=== PATIENT | female | born 1980 | race Caucasian/White ===

== ENCOUNTER → 2016-09-07 | Outpatient (CLI) | payer BC | LOC: RAD 14:07 | PROVIDERS: ATTEND Family Medicine | DX: S80.01XA Contusion of right knee, initial encounter (principal); X58.XXXA Exposure to other specified factors, initial encounter ==

== ENCOUNTER 2017-05-17 10:16 | Emergency (ER) | payer BC ==
[2017-05-17] MEDS ORDERED: ONDANSETRON HCL INJ/PF 4 MG/2 ML SDV IV ONE (10:48)
[2017-05-17] MEDS ORDERED: MORPHINE SULFATE 10 MG/ML INJ IV ONE (10:48)
--- NOTE | 2017-05-17 10:50 | ER Document Report ---
ED Medical Screen (RME) - General Chief Complaint: Abdominal Pain Stated Complaint: ABDOMINAL PAIN/VOMITING Time Seen by Provider: 05/17/17 10:44 Mode of Arrival: Ambulatory Information source: Patient Notes: 37-year-old female presents with complaints of abdominal pain generalized. Patient admits nausea vomiting, she has similar episode 2 weeks ago right lower quadrant that improved after 2-3 days Patient has history of tubal ligation I have greeted and performed a rapid initial assessment of this patient. A comprehensive ED assessment and evaluation of the patient, analysis of test results and completion of the medical decision making process will be conducted by additional ED providers. PHYSICAL EXAMINATION: GENERAL: Well-appearing, well-nourished and in mild distress. HEAD: Atraumatic, normocephalic. EYES: Pupils equal round extraocular movements intact, conjunctiva are normal. ENT: Nares patent NECK: Normal range of motion LUNGS: No respiratory distress Musculoskeletal: Normal range of motion NEUROLOGICAL: Normal speech, normal gait. PSYCH: Normal mood, normal affect. SKIN: Warm, Dry, normal turgor, no rashes or lesions noted. TRAVEL OUTSIDE OF THE [place] IN LAST 30 DAYS: No - Related Data Allergies/Adverse Reactions: hydrocodone [Hydrocodone] Allergy (Severe, Verified 05/17/17 10:20) N&V, itching Past Medical History - Past Medical History Cardiac Medical History: Reports: Hx Hypertension Pulmonary Medical History: Reports: Hx Pneumonia - "Walking" yrs ago Comment Only: Hx Asthma - Chronic allergies Renal/ Medical History: Denies: Hx Peritoneal Dialysis Musculoskeltal Medical History: Reports Hx Arthritis - Knees, elbows Psychiatric Medical History: Reports: Hx Attention Deficit Hyperactivity Disorder, Hx Depression - Immunizations Hx Diphtheria, Pertussis, Tetanus Vaccination: Yes Physical Exam - Vital signs Vitals: Temp Pulse Resp BP Pulse Ox 97.8 F 104 H 28 H 125/66 94 05/17/17 10:20 05/17/17 10:20 05/17/17 10:20 05/17/17 10:20 05/17/17 10:20 Course - Vital Signs Vital signs: Temp Pulse Resp BP Pulse Ox 97.8 F 104 H 28 H 125/66 94 05/17/17 10:20 05/17/17 10:20 05/17/17 10:20 05/17/17 10:20 05/17/17 10:20
--- NOTE | 2017-05-17 11:11 | ER Document Report ---
ED GI/ - General Chief Complaint: Abdominal Pain Stated Complaint: ABDOMINAL PAIN/VOMITING Time Seen by Provider: 05/17/17 10:44 Mode of Arrival: Ambulatory Notes: 37-year-old morbidly obese female with generalized acute abdominal pain that started at 0200. She went to urgent care who sent her to the emergency room. She took mag citrate which did not help. no vomiting. No fever or chills. No dysuria. TRAVEL OUTSIDE OF THE [place] IN LAST 30 DAYS: No - Related Data Allergies/Adverse Reactions: hydrocodone [Hydrocodone] Allergy (Severe, Verified 05/17/17 10:20) N&V, itching Past Medical History - General Information source: Patient - Social History Smoking Status: Never Smoker Chew tobacco use (# tins/day): No Frequency of alcohol use: None Drug Abuse: None Lives with: Family Family History: Reviewed & Not Pertinent - Past Medical History Cardiac Medical History: Reports: Hx Hypertension Pulmonary Medical History: Reports: Hx Pneumonia - "Walking" yrs ago Comment Only: Hx Asthma - Chronic allergies Renal/ Medical History: Denies: Hx Peritoneal Dialysis Musculoskeltal Medical History: Reports Hx Arthritis - Knees, elbows Psychiatric Medical History: Reports: Hx Attention Deficit Hyperactivity Disorder, Hx Depression Past Surgical History: Reports: Hx Gynecologic Surgery - ovary, Hx Tubal Ligation - Immunizations Hx Diphtheria, Pertussis, Tetanus Vaccination: Yes Hx Pneumococcal Vaccination: 12/07/12 Review of Systems - Review of Systems Constitutional: No symptoms reported EENT: No symptoms reported Cardiovascular: No symptoms reported Respiratory: No symptoms reported Gastrointestinal: See HPI Genitourinary: No symptoms reported Female Genitourinary: No symptoms reported Musculoskeletal: No symptoms reported Skin: No symptoms reported Hematologic/Lymphatic: No symptoms reported Neurological/Psychological: No symptoms reported Physical Exam - Vital signs Vitals: Temp Pulse Resp BP Pulse Ox 97.8 F 104 H 28 H 125/66 94 05/17/17 10:20 05/17/17 10:20 05/17/17 10:20 05/17/17 10:20 05/17/17 10:20 Interpretation: Normal - General General appearance: Appears well, Alert - HEENT Head: Normocephalic, Atraumatic Eyes: Normal Conjunctiva: Normal Pupils: PERRL Neck: Supple. No: Lymphadenopathy - Respiratory Respiratory status: No respiratory distress Chest status: Nontender Breath sounds: Normal Chest palpation: Normal - Cardiovascular Rhythm: Regular Heart sounds: Normal auscultation Murmur: No - Abdominal Inspection: Normal Distension: No distension. No: Distended Bowel sounds: Normal Tenderness: Tender - mild diffusely lower 1/2 abdomen bilaterally Organomegaly: No organomegaly - Back Back: Normal, Nontender. No: CVA tenderness - Extremities General upper extremity: Normal inspection, Nontender, Normal color, Normal ROM , Normal temperature General lower extremity: Normal inspection, Nontender, Normal color, Normal ROM , Normal temperature, Normal weight bearing. No: Josy's sign - Neurological Neuro grossly intact: Yes Cognition: Normal Orientation: AAOx4 Daphne Coma Scale Eye Opening: Spontaneous Daphne Coma Scale Verbal: Oriented Daphne Coma Scale Motor: Obeys Commands Daphne Coma Scale Total: 15 Speech: Normal Motor strength normal: LUE, RUE, LLE, RLE Sensory: Normal - Psychological Associated symptoms: Normal affect, Normal mood - Skin Skin Temperature: Warm Skin Moisture: Dry Skin Color: Normal Skin irregularity: negative: Rash Course - Re-evaluation Re-evalutation: 05/17/17 14:20 White count is elevated with segs 86%, 3+ bacteria in the urine without white blood cells urine culture is pending, spoke with Dr. Harvey who would order the CT scan about the result which shows constipation and a left ovarian cyst. At this time the patient is non-tender after 2 L of fluid. I will give her Rocephin for the bacteria pending the urine culture and Dr. Longo will come see the patient is recommended by Dr. carvajal 05/17/17 14:58 dr longo evaluated pt, only constipation - Vital Signs Vital signs: Temp Pulse Resp BP Pulse Ox 97.8 F 104 H 28 H 125/66 94 05/17/17 10:20 05/17/17 10:20 05/17/17 10:20 05/17/17 10:20 05/17/17 10:20 - Laboratory Result Diagrams: 05/17/17 11:20 05/17/17 11:20 Laboratory results interpreted by me: 05/17/17 05/17/17 11:20 11:20 WBC 17.7 H RBC 3.61 L Hgb 11.1 L Hct 32.1 L RDW 14.8 H Seg Neutrophils % 83.2 H Lymphocytes % 8.9 L Absolute Neutrophils 14.7 H Sodium 132.2 L Chloride 92 L BUN 36 H Creatinine 2.06 H Est GFR ( Amer) 32 L Est GFR (Non-Af Amer) 27 L Glucose 168 H AST 96 H ALT 65 H Discharge - Discharge Clinical Impression: Left ovarian cyst Constipation Qualifiers: Constipation type: other constipation type Qualified Code(s): K59.09 - Other constipation Condition: Good Disposition: HOME, SELF-CARE Instructions: Abdominal Pain ([facility]), Constipation ([facility]), Ovarian Cyst ([facility]) Additional Instructions: plenty of fluids do not take mag citrate it causes cramping take capful of miralax daioly instead ovarian cyst can be followed by dr. walter to er if worse Please complete the patient satisfaction survey if you get one, and return it.. If you do not receive a survey, then you can go to the [facility] website, [email or web address] and place your comments about your very good care. Thank you very much. It was a pleasure being your medical provider today. Referrals: ALEX WALTER, [Primary Care Provider] - Follow up tomorrow
[2017-05-17] MEDS ORDERED: NORMAL SALINE 1000 ML 2,000 ML IV ONE (11:21)
[2017-05-17 11:39] LABS: ABSOLUTE LYMPHOCYTES (AUTO) 1.6 10^3/uL (0.5-4.7); ABSOLUTE MONOCYTES (AUTO) 1.4 10^3/uL (0.1-1.4); ABSOLUTE NEUT (AUTO) 14.7 10^3/uL (1.7-8.2); BASOPHILS % (AUTO) 0.3 % (0-2); HEMATOCRIT 32.1 % (36.0-47.0); HEMOGLOBIN 11.1 g/dL (12.0-15.5); HGB HCT DIFFERENCE 1.2; LYMPHOCYTES % (AUTO) 8.9 % (13-45); MEAN CORPUSCULAR HEMOGLOBIN 30.8 pg (27.0-33.4); MEAN CORPUSCULAR HGB CONC 34.7 g/dL (32.0-36.0); MEAN CORPUSCULAR VOLUME 89 fl (80-97); MONOCYTES % (AUTO) 7.6 % (3-13); RED BLOOD COUNT 3.61 10^6/uL (3.72-5.28); RED CELL DISTRIBUTION WIDTH 14.8 % (11.5-14.0); SEGMENTED NEUTROPHILS % (AUTO) 83.2 % (42-78); WHITE BLOOD COUNT 17.7 10^3/uL (4.0-10.5)
[2017-05-17 12:01] LABS: ALANINE AMINOTRANSFERASE 65 U/L (9-52); ALBUMIN 4.6 g/dL (3.5-5.0); ALKALINE PHOSPHATASE 91 U/L (38-126); ANION GAP 16 (5-19); ASPARTATE AMINO TRANSFERASE 96 U/L (14-36); BILIRUBIN,DIRECT 0.4 mg/dL (0.0-0.4); BILIRUBIN,TOTAL 0.4 mg/dL (0.2-1.3); BLOOD UREA NITROGEN 36 mg/dL (7-20); CALCIUM 9.3 mg/dL (8.4-10.2); CARBON DIOXIDE 24 mmol/L (22-30); CHLORIDE 92 mmol/L (98-107); CREATININE RESULT 2.06 mg/dL (0.52-1.25); GLUCOSE 168 mg/dL (75-110); LIPASE 108.2 U/L (23-300); POTASSIUM 3.7 mmol/L (3.6-5.0); SODIUM 132.2 mmol/L (137-145); TOTAL PROTEIN 7.8 g/dL (6.3-8.2)
[2017-05-17 13:51] LABS: APPEARANCE,URINE SLIGHTLY-CLOUDY; BILIRUBIN,URINE NEGATIVE (NEGATIVE); GLUCOSE, URINE NEGATIVE (NEGATIVE); KETONES,URINE NEGATIVE (NEGATIVE); LEUKOCYTE ESTERASE,URINE NEGATIVE (NEGATIVE); NITRITE,URINE NEGATIVE (NEGATIVE); PROTEIN,URINE NEGATIVE (NEGATIVE); URINE SPECIFIC GRAVITY 1.014; UROBILINOGEN,URINE NEGATIVE mg/dL (<2.0)
--- NOTE | 2017-05-17 14:01 | RADIOLOGY REPORT (SQ) ---
EXAM DESCRIPTION: CT ABD/PELVIS ORAL ONLY COMPLETED DATE/TIME: 05/17/2017 1:37 pm REASON FOR STUDY: abd pain possible ruptured appendix COMPARISON: 01/21/2012 TECHNIQUE: CT scan of the abdomen and pelvis performed without intravenous or oral contrast. Images reviewed with lung, soft tissue, and bone windows. Reconstructed coronal and sagittal MPR images revi ewed. All images stored on PACS. All CT scanners at this facility use dose modulation, iterative reconstruction, and/or weight based d osing when appropriate to reduce radiation dose to as low as reasonably achievable (ALARA). [facility]: Dose Right [facility]: CareDose [facility]: Dose Right [facility]: Teradose 4D [facility]: Smart Fan[employer] Limited RADIATION DOSE: Up-to-date CT equipment and radiation dose reduction techniques were employed. CTDIv ol: 29.0 mGy. DLP: 1710 mGy-cm.mGy. LIMITATIONS: None. FINDINGS: LOWER CHEST: No significant findings. No nodules or infiltrates. NON-CONTRASTED LIVER, SPLEEN, ADRENALS: Evaluation limited by lack of IV contrast. No identified sign ificant masses. PANCREAS: No masses. No peripancreatic inflammatory changes. GALLBLADDER: No identified stones by CT criteria. No inflammatory changes to suggest cholecystitis. RIGHT KIDNEY AND URETER: No suspicious masses. Assessment limited by lack of IV contrast. No signif icant calcifications. No hydronephrosis or hydroureter. LEFT KIDNEY AND URETER: No suspicious masses. Assessment limited by lack of IV contrast. No signifi cant calcifications. No hydronephrosis or hydroureter. AORTA AND RETROPERITONEUM: No aneurysm. No retroperitoneal masses or adenopathy. BOWEL AND PERITONEAL CAVITY: Increased fecal material with fluid fills the right and transverse colon . APPENDIX: Normal. PELVIS, BLADDER, AND ABDOMINAL WALL:Previously noted right ovarian mass no longer seen. A 2.6 cm cys t is seen of the left ovary. BONES: No significant findings. OTHER: No other significant finding. IMPRESSION: No CT evidence appendicitis. Constipation with increased fecal material and fluid filling the right and transverse colon. 2.6 cm left ovarian cyst. COMMENT: Quality ID # [id number]: Final reports with documentation of one or more dose reduction techniques (e.g., Automated exposure control, adjustment of the mA and/or kV according to patient size, use of iterative reconstruction technique) TECHNICAL DOCUMENTATION: JOB ID: [id number]- All Rights Reserved
[2017-05-17] MEDS ORDERED: CEFTRIAXONE 1 GM/D5W RTU 1 GM/50 ML RTUPB IV ONE (14:19)
--- NOTE | 2017-05-17 15:08 | PDOC CONSULTATION ---
Consultation Consult Date: 05/17/17 Attending physician:: DOUG ROUSE Consult reason:: Abdominal pain nausea vomiting History of Present Illness Admission Date/PCP: ALEX WALTER DO History of Present Illness: EKTA CARROLL is a 37 year old female sent to the emergency department approximately 2 day history of abdominal pain, nausea and vomiting. Patient states she has not had a good bowel movement in over a week. She denies history of trauma, previous episodes of abdominal pain or constipation. She has never had a colonoscopy. She did take milk of magnesia with minimal results. She is now seen in the emergency department where she was found to have nonlocalized abdominal pain. She underwent CT scan of the abdomen and pelvis which showed constipation only. Surgery was consulted. Past Medical History Cardiac Medical History: Reports: Hypertension Pulmonary Medical History: Reports: Pneumonia - "Walking" yrs ago Comment Only: Asthma - Chronic allergies Musculoskeltal Medical History: Reports: Arthritis - Knees, elbows Psychiatric Medical History: Reports: Attention Deficit Hyperactivity Disorder, Depression Hematology: Denies: Anemia Past Surgical History Past Surgical History: Reports: Tubal Ligation, Other - Abdominal plasty with panniculectomy, [facility] Social History Smoking Status: Never Smoker Frequency of Alcohol Use: None Hx Recreational Drug Use: No Drugs: None Hx Prescription Drug Abuse: No Family History Family History: Reviewed & Not Pertinent Parental Family History Reviewed: Yes Children Family History Reviewed: Yes Sibling(s) Family History Reviewed.: Yes Medication/Allergy Home Medications: Alprazolam [Xanax] 2 mg PO BID 10/22/15 Dextroamphetamine/Amphetamine [Adderall 10 mg Tablet] 10 mg PO QAM 10/22/15 Furosemide [Lasix 20 mg Tablet] 20 mg PO QAM 10/22/15 Montelukast Sodium [Singulair 10 mg Tablet] 10 mg PO QAM 10/22/15 Oxycodone HCl/Acetaminophen [Percocet 7.5-325 Mg Tablet] 1 each PO QHS 10/22/15 Prazosin HCl 1 mg PO QHS 10/22/15 Pregabalin [Lyrica] 150 mg PO BID 10/22/15 Telmisartan/Hydrochlorothiazid [Micardis HCT 40-12.5 mg Tablet] 1 each PO DAILY 10/22/15 Venlafaxine HCl [Effexor Xr] 150 mg PO BID 10/22/15 Allergies/Adverse Reactions: hydrocodone [Hydrocodone] Allergy (Severe, Verified 05/17/17 10:20) N&V, itching Review of Systems Eyes: ABSENT: visual disturbances Ears: ABSENT: hearing changes Cardiovascular: ABSENT: chest pain, dyspnea on exertion, edema, orthropnea, palpitations Respiratory: ABSENT: cough, hemoptysis Gastrointestinal: PRESENT: as per HPI. ABSENT: abdominal pain, constipation, diarrhea, hematemesis, hematochezia, nausea, vomiting Psychiatric: PRESENT: as per HPI Physical Exam Vital Signs: Temp Pulse Resp BP Pulse Ox 97.8 F 104 H 28 H 125/66 94 05/17/17 10:20 05/17/17 10:20 05/17/17 10:20 05/17/17 10:20 05/17/17 10:20 Intake & Output 05/16/17 05/17/17 05/18/17 06:59 06:59 06:59 Weight 127.1 kg General appearance: PRESENT: mild distress Head exam: PRESENT: normocephalic Eye exam: PRESENT: EOMI Ear exam: PRESENT: TM's normal bilaterally Neck exam: PRESENT: full ROM Respiratory exam: PRESENT: retraction Cardiovascular exam: PRESENT: RRR Pulses: PRESENT: +1 pedal pulses bilateral, +2 pedal pulses bilateral GI/Abdominal exam: PRESENT: other - Generalized distention doughy,semi-firm no peritoneal signs no rigidity. Rectal exam: PRESENT: deferred Extremities exam: PRESENT: full ROM Neurological exam: PRESENT: oriented to time, oriented to situation, reflexes normal Psychiatric exam: PRESENT: anxious Results Laboratory Results: 05/17/17 11:20 05/17/17 11:20 05/17/17 05/17/17 05/17/17 11:20 11:20 11:20 WBC 17.7 H RBC 3.61 L Hgb 11.1 L Hct 32.1 L MCV 89 MCH 30.8 MCHC 34.7 RDW 14.8 H Plt Count 343 Seg Neutrophils % 83.2 H Lymphocytes % 8.9 L Monocytes % 7.6 Eosinophils % 0.0 Basophils % 0.3 Absolute Neutrophils 14.7 H Absolute Lymphocytes 1.6 Absolute Monocytes 1.4 Absolute Eosinophils 0.0 Absolute Basophils 0.0 Sodium 132.2 L Potassium 3.7 Chloride 92 L Carbon Dioxide 24 Anion Gap 16 BUN 36 H Creatinine 2.06 H Est GFR ( Amer) 32 L Est GFR (Non-Af Amer) 27 L Glucose 168 H Calcium 9.3 Total Bilirubin 0.4 AST 96 H ALT 65 H Alkaline Phosphatase 91 Total Protein 7.8 Albumin 4.6 Lipase 108.2 Serum HCG, Qual NEGATIVE Urine Color Urine Appearance Urine pH Ur Specific Jonancy Urine Protein Urine Glucose (UA) Urine Ketones Urine Blood Urine Nitrite Ur Leukocyte Esterase Urine WBC (Auto) Urine RBC (Auto) 05/17/17 12:25 WBC RBC Hgb Hct MCV MCH MCHC RDW Plt Count Seg Neutrophils % Lymphocytes % Monocytes % Eosinophils % Basophils % Absolute Neutrophils Absolute Lymphocytes Absolute Monocytes Absolute Eosinophils Absolute Basophils Sodium Potassium Chloride Carbon Dioxide Anion Gap BUN Creatinine Est GFR ( Amer) Est GFR (Non-Af Amer) Glucose Calcium Total Bilirubin AST ALT Alkaline Phosphatase Total Protein Albumin Lipase Serum HCG, Qual Urine Color YELLOW Urine Appearance SLIGHTLY-CLOUDY Urine pH 5.0 Ur Specific Jonancy 1.014 Urine Protein NEGATIVE Urine Glucose (UA) NEGATIVE Urine Ketones NEGATIVE Urine Blood NEGATIVE Urine Nitrite NEGATIVE Ur Leukocyte Esterase NEGATIVE Urine WBC (Auto) 1 Urine RBC (Auto) 3 Impressions: Abdomen/Pelvis CT 05/17/17 12:33 IMPRESSION: No CT evidence appendicitis. Constipation with increased fecal material and fluid filling the right and transverse colon. 2.6 cm left ovarian cyst. Assessment & Plan - Diagnosis (1) Constipation Qualifiers: Constipation type: other constipation type Qualified Code(s): K59.09 - Other constipation Is this a current diagnosis for this admission?: Yes Plan: I have examined the patient review the medical record, reviewed his CT scan of the abdomen and pelvis which was obtained with oral contrast; IV contrast spared due to patient's chronic renal insufficiency. My impression is that her principal problem is constipation; low suspicions for intra-abdominal surgical pathology. Recommendations 1. Hydration 2. Cathartics; would suggest enema today 3. Follow-up with surgical consultation on an as needed basis - Time Time Spent: 30 to 50 Minutes Critical Time spent with patient: Less than 15 minutes Anticipated discharge: Home
[2017-05-17 15:30] VITALS: BP 118/86
== END 2017-05-17 15:30 | disposition home or self-care (01) ==
LOC: ER 10:16
DX: N83.202 Unspecified ovarian cyst, left side (principal); K59.09 Other constipation; R11.10 Vomiting, unspecified; R10.84 Generalized abdominal pain
CPT/HCPCS: 36415; 87086; 83690; 84703; 85025; 80053; 81001; 74176; J2270; J2405; J7030; J0696

== ENCOUNTER 2017-06-09 14:31 | Inpatient (IN) | payer BC ==
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
[2017-06-09] MEDS ORDERED: NORMAL SALINE 1000 ML 1,000 ML IV ONE ×3 (15:54→18:37)
--- NOTE | 2017-06-09 15:55 | RADIOLOGY REPORT (SQ) ---
EXAM DESCRIPTION: ANKLE LEFT COMPLETE COMPLETED DATE/TIME: 06/09/2017 3:46 pm REASON FOR STUDY: fall/pain COMPARISON: None. NUMBER OF VIEWS: Three views. TECHNIQUE: AP, lateral, and oblique radiographic images acquired of the left ankle. LIMITATIONS: None. FINDINGS: MINERALIZATION: Normal. BONES: There is an oblique fracture of the distal fibula. The ankle mortise is maintained. JOINTS: No effusions. SOFT TISSUES: No soft tissue swelling. No foreign body. OTHER: No other significant finding. IMPRESSION: Fracture of the distal fibula. TECHNICAL DOCUMENTATION: JOB ID: [id number] [employer]- All Rights Reserved
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
--- NOTE | 2017-06-09 16:53 | RADIOLOGY REPORT (SQ) ---
EXAM DESCRIPTION: CT HEAD WITHOUT COMPLETED DATE/TIME: 06/09/2017 4:45 pm REASON FOR STUDY: Recent injury to the face from a fall. Overdosed COMPARISON: 10/21/2015 TECHNIQUE: Axial images acquired through the brain without intravenous contrast. Images reviewed wi th bone, brain and subdural windows. Images stored on PACS. All CT scanners at this facility use dose modulation, iterative reconstruction, and/or weight based d osing when appropriate to reduce radiation dose to as low as reasonably achievable (ALARA). [facility]: Dose Right [facility]: CareDose [facility]: Dose Right [facility]: Teradose 4D [facility]: Big Live RADIATION DOSE: mGy. LIMITATIONS: None. FINDINGS: VENTRICLES: Normal size and contour. CEREBRUM: No masses. No hemorrhage. No midline shift. No evidence for acute infarction. Normal gra y/white matter differentiation. No areas of low density in the white matter. CEREBELLUM: No masses. No hemorrhage. No alteration of density. No evidence for acute infarction. EXTRAAXIAL SPACES: No fluid collections. No masses. ORBITS AND GLOBE: No intra- or extraconal masses. Normal contour of globe without masses. CALVARIUM: No fracture. PARANASAL SINUSES: No fluid or mucosal thickening. SOFT TISSUES: No mass or hematoma. OTHER: No other significant finding. IMPRESSION: NORMAL BRAIN CT WITHOUT CONTRAST. EVIDENCE OF ACUTE STROKE: NO. COMMENT: Quality ID # [id number]: Final reports with documentation of one or more dose reduction techniques (e.g., Automated exposure control, adjustment of the mA and/or kV according to patient size, use of iterative reconstruction technique) TECHNICAL DOCUMENTATION: JOB ID: [id number]- All Rights Reserved
[2017-06-09 17:01] LABS: HEMATOCRIT 27.7 % (36.0-47.0); HEMOGLOBIN 9.6 g/dL (12.0-15.5); HGB HCT DIFFERENCE 1.1; MEAN CORPUSCULAR HEMOGLOBIN 30.2 pg (27.0-33.4); MEAN CORPUSCULAR HGB CONC 34.4 g/dL (32.0-36.0); MEAN CORPUSCULAR VOLUME 88 fl (80-97); RED BLOOD COUNT 3.17 10^6/uL (3.72-5.28)
[2017-06-09 17:14] LABS: ALANINE AMINOTRANSFERASE 149 U/L (9-52); ALBUMIN 3.9 g/dL (3.5-5.0); ALKALINE PHOSPHATASE 100 U/L (38-126); ANION GAP 18 (5-19); ASPARTATE AMINO TRANSFERASE 115 U/L (14-36); BILIRUBIN,DIRECT 0.8 mg/dL (0.0-0.4); BILIRUBIN,TOTAL 0.8 mg/dL (0.2-1.3); BLOOD UREA NITROGEN 42 mg/dL (7-20); CALCIUM 8.9 mg/dL (8.4-10.2); CARBON DIOXIDE 26 mmol/L (22-30); CHLORIDE 96 mmol/L (98-107); CREATININE RESULT 2.68 mg/dL (0.52-1.25); GLUCOSE 107 mg/dL (75-110); POTASSIUM 3.8 mmol/L (3.6-5.0); SODIUM 139.5 mmol/L (137-145); TOTAL PROTEIN 7.1 g/dL (6.3-8.2)
[2017-06-09 17:31] LABS: ALCOHOL < 10 mg/dL (NONE DETECTED)
[2017-06-09 17:33] LABS: BAND NEUTROPHILS % (MANUAL) 2 % (3-5); BASOPHILS % (MANUAL) 0 % (0-2); EOSINOPHILS % (MANUAL) 7 % (0-6); LYMPHOCYTES % (MANUAL) 20 % (13-45); TOTAL CELLS COUNTED 100
[2017-06-09 17:35] LABS: ANISOCYTOSIS SLIGHT; POIKILOCYTOSIS SLIGHT; TOXIC GRANULATION SLIGHT
[2017-06-09] MEDS ORDERED: NICOTINE 21 MG/24 HR PATCH.TD24 TD ONE ×2 (18:36→23:15)
[2017-06-09 18:42] LABS: ADD ON TESTING BLD IN LAB ACKNOWLEDGE
[2017-06-09 19:00] LABS: APPEARANCE,URINE SLIGHTLY-CLOUDY; BILIRUBIN,URINE NEGATIVE (NEGATIVE); GLUCOSE, URINE NEGATIVE (NEGATIVE); KETONES,URINE NEGATIVE (NEGATIVE); LEUKOCYTE ESTERASE,URINE NEGATIVE (NEGATIVE); NITRITE,URINE NEGATIVE (NEGATIVE); PROTEIN,URINE 30 mg/dL (NEGATIVE); URINE SPECIFIC GRAVITY 1.012; UROBILINOGEN,URINE NEGATIVE mg/dL (<2.0)
[2017-06-09 19:21] LABS: URINE BARBITURATES SCREEN NEGATIVE; URINE METHADONE SCREEN NEGATIVE; URINE OPIATES LOW NEGATIVE; URINE PHENCYCLIDINE SCREEN NEGATIVE
[2017-06-09 19:28] LABS: CREATINE KINASE 4381 U/L (30-135)
[2017-06-09 21:23] LABS: ADD ON TESTING BLD IN LAB ACKNOWLEDGE
[2017-06-09 21:39] LABS: MAGNESIUM 2.1 mg/dL (1.6-2.3)
--- NOTE | 2017-06-09 21:51 | PDOC H&P ---
History of Present Illness Admission Date/PCP: 06/09/17 20:19 ALEX WALTER, DO Psych Dr. Wise, [facility] Patient complains of: FALL W/LT. ANKLE PAIN History of Present Illness: EKTA CARROLL is a 37 year old morbidly obese female, with underlying ADHD, anxiety and depression, history of cutting herself, obstructive sleep apnea, hyperlipidemia, chronic bronchitis, hypertension, and mild occasional reflux who presents to the emergency room for evaluation of above complaint. Reported chronic opiate and benzodiazepine use. Patient has been discussed with emergency room physician who evaluated the patient. Fell off a stool last or Wednesday while at work. Was seen at the [facility] emergency room, and sent home with a take home Percocet pack and Flexeril 10 mg every 8 hours as needed, per ER physician report of paperwork from [facility]. Took pain medication and Flexeril earlier today and fell down a flight of 2 or 3 stairs at her home. No loss of consciousness. Complaining of left ankle pain , with x-rays revealing a distal left fibular fracture. Splint has been applied by emergency room physician. No nausea vomiting, diarrhea or dysuria, fever or chills, chest or abdominal pain. Emergency room physician felt patient was clearly altered in her mental status and thinking earlier, and felt she was a danger to herself and thus andrews up IVC papers. Has been seen by Dr. Daniels of psychiatry, who will also see her in follow-up. Patient states she took prescriptions that she has including Xanax, Percocet, Ambien, Wellbutrin, Flexeril, Motrin, and Naprosyn. States these are all her own prescriptions. When asked if she had taken the prescriptions in the correct amounts, she stated "as best as I can remember." Denied taking any other substances. Denies suicidal or homicidal ideation. Brief mild hypotension earlier. Dictation via voice recognition software. Laboratory results are listed in [employer] and are reviewed. X-ray summary results are listed below, with full report(s) reviewed. EKG reviewed. Social history/personal habits: . Has children. 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 Allergies/adverse reactions are listed in [employer] and are reviewed. No problems with Percocet; uncertain if she can tolerate morphine or Dilaudid. Home medications initially autopopulated into Smart[employer] may not accurately reflect patient's true medications, dosages, and/or frequencies. technical support assistant to reconcile medications. Unfortunately, patient not certain of all medications/dosages/frequencies. REVIEW OF SYSTEMS: Constitutional: No fever or chills. Eyes: No vision complaints. ENT: No swallowing problems or complaints. Denies hearing loss. Pulmonary: No current complaints. Cardiovascular: No current complaints, including chest pain. Gastrointestinal: No current complaints, including nausea or vomiting. Skin: No current complaints, including rashes. Hematologic: Denies easy bruising. Neurologic: No current complaints, including numbness or tingling. Musculoskeletal: See history and present illness. Psychiatric: See history and present illness. Endocrine: No current complaints, including polyuria. Genitourinary: No current complaints, including dysuria. PHYSICAL EXAMINATION: 5 feet 9 inches tall. 129.3 kg. BMI 42.1 kg/m. Blood pressure 121/68. Pulse 97 and regular. 97% saturation on room air. Temperature 98.7. Respirations are 22 and unlabored. Female emergency room assistant in nursing Ana Cristina is present. Morbidly obese otherwise well-developed young female appearing a bit younger than her stated age. Pleasant awake alert and cooperative. Appears perhaps slightly altered in her mental status. Occasionally slightly tearful. Skin is warm and dry. No grossly obvious evidence of rash in areas of skin examined. No subcutaneous nodules palpated. ENT: Hearing grossly normal to normal conversation. Tongue midline on protrusion pink and slightly tacky. No carnes sign. Has a small abrasion on the bridge of her nose, which appears to have been present for at least several days. No evidence of secondary infection of same. Eyes: No scleral icterus. Pupils equal and reactive to light at 4 mm. [place] conjunctivae. No raccoon eyes. Neck is supple and nontender to gentle active range of motion and palpation. Midline trachea. No palpable thyroid nodule mass enlargement or tenderness. Lymphatic: No palpable cervical or clavicular nodes. Neck and lymphatic exams limited by patient body habitus. Psychiatric: Fair to reasonable insight into acute and chronic medical issues. Oriented to time location and why here. Lungs: Auscultation reveals clear and equal breath sounds bilaterally. No use of accessory respiratory muscles. Cardiovascular: Heart regular rate and rhythm, without gallop murmur or rub. No carotid or abdominal aortic bruits. No right ankle or pedal edema. Faintly palpable right dorsalis pedis pulse. Examination of left lower extremity limited due to splint and chris wrap extending from just below knee through distal foot. Left great toe visible, warm, with excellent capillary refill. Abdomen:soft obese nontender with positive bowel sounds. Unable to adequately evaluate abdomen for masses or organomegaly due to body habitus. Extremities: Right foot and left great toe are warm and dry. No calf tenderness to compression. No grossly obvious visual evidence of right calf swelling. Gentle manipulation of lower extremities fails to reveal any obvious evidence of injury or instability to knees hips or right ankle. Neurologic: Moves upper extremities grossly normally. Patellar reflexes absent. Absent right Babinski. Light touch is intact at right foot. Dorsiflexion and plantarflexion of right foot 5/5. Past Medical History Cardiac Medical History: Reports: Hyperlipidema, Hypertension Denies: Atrial Fibrillation, Congestive Heart Failure, Coronary Artery Disease, DVT, Myocardial Infarction, Pulmonary Embolism Pulmonary Medical History: Reports: Pneumonia - "Walking" yrs ago, Sleep Apnea Comment Only: Asthma - Chronic allergies Neurological Medical History: Denies: Hemorrhagic CVA, Ischemic CVA, Seizures Endocrine Medical History: Denies: Diabetes Mellitus Type 1, Diabetes Mellitus Type 2, Hyperthyroidism, Hypothyroidism GI Medical History: Reports: Gastroesophageal Reflux Disease Denies: Cirrhosis, Hepatitis, Peptic Ulcer Disease Musculoskeltal Medical History: Reports: Arthritis - Knees, elbows Psychiatric Medical History: Reports: Attention Deficit Hyperactivity Disorder, Depression Hematology: Denies: Anemia Infectious Medical History: Denies: Hepatitis B, Hepatitis C Past Surgical History Past Surgical History: Reports: Tubal Ligation, Other - Abdominal plasty with panniculectomy, [facility], 2013. Denies: Coronary Artery Bypass Graft Social History Information Source: Patient, Emergency Med Personnel, [facility] Records Lives with: Spouse/Significant other - Has lived with ex- for past 9 years Smoking Status: Current Every Day Smoker - Electronic cigarette Frequency of Alcohol Use: None Hx Recreational Drug Use: No Drugs: None Hx Prescription Drug Abuse: Yes - Suspected - Advance Directive Resuscitation Status: Full Code Surrogate healthcare decision maker:: Ex- Family History Family History: Reviewed & Not Pertinent Parental Family History Reviewed: Yes - Uncertain; patient is adopted Children Family History Reviewed: Yes - ADHD Sibling(s) Family History Reviewed.: Yes - Uncertain; patient is adopted Medication/Allergy Home Medications: Alprazolam [Xanax] 2 mg PO Q12 06/09/17 Asenapine Maleate [Saphris] 10 mg SL QHS 06/09/17 Bupropion HCl [Bupropion Xl] 150 mg PO QAM 06/09/17 Cetirizine HCl [Zyrtec 10 mg Tablet] 10 mg PO DAILY 06/09/17 Cyclobenzaprine HCl [Flexeril 10 mg Tablet] 10 mg PO Q8HP PRN 06/09/17 Dextroamphetamine/Amphetamine [Adderall Xr 20 mg Capsule] 20 mg PO DAILY Furosemide [Lasix 20 mg Tablet] 20 mg PO DAILY 06/09/17 Montelukast Sodium [Singulair 10 mg Tablet] 10 mg PO QPM 06/09/17 Oxycodone HCl 15 mg PO Q6 06/09/17 Oxycodone HCl/Acetaminophen [Percocet 10-325 mg Tablet] 1 tab PO Q6HP PRN Prazosin HCl [Minipress] 5 mg PO QHS 06/09/17 Telmisartan/Hydrochlorothiazid [Telmisartan-Hctz 40-12.5 mg Tb] 1 tab PO DAILY 06/09/17 Venlafaxine HCl [Venlafaxine HCl ER] 150 mg PO BIDBS 06/09/17 Zolpidem Tartrate [Ambien] 10 mg PO HSP PRN 06/09/17 Allergies/Adverse Reactions: hydrocodone [Hydrocodone] Allergy (Severe, Verified 06/09/17 14:51) N&V, itching Physical Exam Vital Signs: Temp Pulse Resp BP Pulse Ox 98.6 F 101 H 21 H 124/79 96 06/09/17 14:47 06/09/17 16:04 06/09/17 21:27 06/09/17 21:27 06/09/17 21:27 Results Impressions: Ankle X-Ray 06/09/17 15:16 IMPRESSION: Fracture of the distal fibula. Head CT 06/09/17 16:20 IMPRESSION: NORMAL BRAIN CT WITHOUT CONTRAST. EVIDENCE OF ACUTE STROKE: NO. Assessment & Plan - Diagnosis (1) Acute encephalopathy Is this a current diagnosis for this admission?: Yes Plan: Likely secondary to multiple prescription medication she has taken. Should resolve with time and supportive care. (2) Acute worsening of stage 4 chronic kidney disease Is this a current diagnosis for this admission?: Yes Plan: IV fluids. Serial chemistry. (3) Closed fracture of left distal fibula Qualifiers: Encounter type: initial encounter Fracture morphology: other fracture Qualified Code(s): S82.832A - Other fracture of upper and lower end of left fibula, initial encounter for closed fracture Is this a current diagnosis for this admission?: Yes Plan: Splint with Chris wrap to be left in place. Orthopedic consult. Physical therapy consult. (4) Overdose Qualifiers: Encounter type: initial encounter Injury intent: undetermined intent Qualified Code(s): T50.904A - Poisoning by unspecified drugs, medicaments and biological substances, undetermined, initial encounter Is this a current diagnosis for this admission?: Yes Plan: ICU admission, since not completely sure all medications or substances patient may have taken. I have strongly encouraged patient not to get out of bed without notifying staff , to avoid another fall with injury. Knee high SCDs for DVT prophylaxis, along with subcutaneous heparin. Impression and plans were discussed with patient, who concurs. Time spent in evaluation and management of patient: 72 minutes. (5) Rhabdomyolysis Qualifiers: Rhabdomyolysis type: traumatic Encounter type: initial encounter Qualified Code(s): T79.6XXA - Traumatic ischemia of muscle, initial encounter Is this a current diagnosis for this admission?: Yes Plan: IV fluids. Serial CPK. (6) Depression Qualifiers: Depression Type: unspecified Qualified Code(s): F32.9 - Major depressive disorder, single episode, unspecified Is this a current diagnosis for this admission?: Yes Plan: Resume home medications as appropriate once these have been determined and reviewed. (7) ADHD (attention deficit hyperactivity disorder) Qualifiers: Attention deficit-hyperactivity disorder type: unspecified Qualified Code(s ): F90.9 - Attention-deficit hyperactivity disorder, unspecified type Is this a current diagnosis for this admission?: Yes Plan: Resume home medications as appropriate once these have been determined and reviewed. (8) Anemia Qualifiers: Anemia type: unspecified type Qualified Code(s): D64.9 - Anemia, unspecified Is this a current diagnosis for this admission?: Yes Plan: Follow-up CBC with differential. No need for transfusion at present time. (9) Elevated LFTs Is this a current diagnosis for this admission?: Yes Plan: Serial chemistry. (10) AMANDA (obstructive sleep apnea) Is this a current diagnosis for this admission?: Yes Plan: CPAP nightly - Time Time Spent: 50 to 70 Minutes Medications reviewed and adjusted accordingly: No - Patient uncertain medications. Anticipated discharge: Home Within: within 72 hours - Inpatient Certification Based on my medical assessment, after consideration of the patient's comorbidities, presenting symptoms, or acuity I expect that the services needed warrant INPATIENT care.: Yes I certify that my determination is in accordance with my understanding of Medicare's requirements for reasonable and necessary INPATIENT services [42 CFR 412.3e].: Yes Medical Necessity: Need Close Monitoring Due to Risk of Patient Decompensation, Need For IV Fluids, Need For Continuous Telemetry Monitoring, Risk of Diagnosis Which Will Require Inpatient Eval/Care/Monitoring Post Hospital Care: D/C or Transfer Summary
[2017-06-09] MEDS: HEPARIN SOD (PORCINE) 5,000 UNIT/ML 1 ML SYRINGE SUBCUT SCH (23:22)
[2017-06-09 23:28] LABS: VENOUS BLOOD BASE EXCESS 2.3 mmol/L; VENOUS BLOOD PCO2 49.2 mmHg (35-63); VENOUS BLOOD PH 7.37 (7.30-7.42)
[2017-06-09 23:41] LABS: PROTHROMBIN TIME 15.7 SEC (11.4-15.4)
[2017-06-09 23:42] LABS: PARTIAL THROMBOPLASTIN TIME 33.9 SEC (23.5-35.8)
[2017-06-10] MEDS: NORMAL SALINE 1000 ML 1,000 ML IV PRN ×4 (01:04→17:10)
[2017-06-10 03:45] LABS: ADD ON TESTING BLD IN LAB ACKNOWLEDGE
[2017-06-10 04:08] LABS: CREATINE KINASE 2153 U/L (30-135)
[2017-06-10 06:44] LABS: HEMATOCRIT 23.6 % (36.0-47.0); HEMOGLOBIN 8.4 g/dL (12.0-15.5); HGB HCT DIFFERENCE 1.6; MEAN CORPUSCULAR HGB CONC 35.6 g/dL (32.0-36.0); MEAN CORPUSCULAR VOLUME 87 fl (80-97); RED BLOOD COUNT 2.71 10^6/uL (3.72-5.28); RED CELL DISTRIBUTION WIDTH 14.9 % (11.5-14.0); WHITE BLOOD COUNT 10.5 10^3/uL (4.0-10.5)
[2017-06-10 06:50] LABS: ALANINE AMINOTRANSFERASE 117 U/L (9-52); ALBUMIN 3.4 g/dL (3.5-5.0); ALKALINE PHOSPHATASE 85 U/L (38-126); ANION GAP 12 (5-19); ASPARTATE AMINO TRANSFERASE 74 U/L (14-36); BILIRUBIN,DIRECT 0.6 mg/dL (0.0-0.4); BILIRUBIN,TOTAL 0.6 mg/dL (0.2-1.3); BLOOD UREA NITROGEN 31 mg/dL (7-20); CALCIUM 8.1 mg/dL (8.4-10.2); CARBON DIOXIDE 24 mmol/L (22-30); CHLORIDE 105 mmol/L (98-107); CREATININE RESULT 1.44 mg/dL (0.52-1.25); GLUCOSE 106 mg/dL (75-110); POTASSIUM 4.1 mmol/L (3.6-5.0); SODIUM 140.5 mmol/L (137-145); TOTAL PROTEIN 6.2 g/dL (6.3-8.2)
[2017-06-10 06:58] LABS: BASOPHILS % (MANUAL) 1 % (0-2); EOSINOPHILS % (MANUAL) 7 % (0-6); LYMPHOCYTES % (MANUAL) 28 % (13-45); TOTAL CELLS COUNTED 100
[2017-06-10 06:59] LABS: ANISOCYTOSIS 1+; POLYCHROMASIA 1+; TOXIC GRANULATION 1+; TOXIC VACUOLATION PRESENT
--- NOTE | 2017-06-10 08:39 | PDOC PROGRESS REPORT ---
Subjective Progress Note for:: 06/10/17 Subjective:: Patient has complained of pain on the left foot and leg and reports that the medications are not working and so she keep them dry and trying which one will work faster. Patient denies dizziness or lightheadedness. Patient reports he was not paying attention to the steps which is the reason for her fall. No nausea or vomiting. Had bowel movement that is good earlier this morning. No shortness of breath, chills or fever, dysuria urgency or frequency. Physical Exam Vital Signs: Temp Pulse Resp BP Pulse Ox 98.1 F 93 16 137/64 H 100 06/10/17 08:00 06/10/17 08:27 06/10/17 08:00 06/10/17 08:00 06/10/17 08:00 Intake & Output 06/09/17 06/10/17 06/11/17 06:59 06:59 06:59 Intake Total 3571 Output Total 1800 1600 Balance 1771 -1600 Weight 129.7 kg General appearance: PRESENT: no acute distress, morbidly obese Head exam: PRESENT: normocephalic Eye exam: PRESENT: EOMI Mouth exam: PRESENT: moist, neck supple Neck exam: ABSENT: JVD Respiratory exam: PRESENT: clear to auscultation kathie. ABSENT: rhonchi, wheezes Cardiovascular exam: PRESENT: RRR. ABSENT: gallop GI/Abdominal exam: PRESENT: hypoactive bowel sounds, soft. ABSENT: distended - Obese Extremities exam: PRESENT: other - Trace pretibial edema, ankle brace on the left Neurological exam: PRESENT: alert, awake, oriented to situation Skin exam: PRESENT: dry, warm - [address]. ABSENT: cyanosis Results Laboratory Results: 06/10/17 06:26 06/10/17 06:26 06/09/17 06/09/17 06/10/17 23:13 23:13 06:26 WBC 10.5 RBC 2.71 L Hgb 8.4 L Hct 23.6 L MCV 87 MCH 31.0 MCHC 35.6 RDW 14.9 H Plt Count 305 Seg Neutrophils % Not Reportable Lymphocytes % Not Reportable Monocytes % Not Reportable Eosinophils % Not Reportable Basophils % Not Reportable Absolute Neutrophils Not Reportable Absolute Lymphocytes Not Reportable Absolute Monocytes Not Reportable Absolute Eosinophils Not Reportable Absolute Basophils Not Reportable VBG pH 7.37 VBG pCO2 49.2 VBG HCO3 28.0 VBG Base Excess 2.3 Sodium Potassium Chloride Carbon Dioxide Anion Gap BUN Creatinine Est GFR ( Amer) Est GFR (Non-Af Amer) Glucose Calcium Total Bilirubin AST ALT Alkaline Phosphatase Ammonia < 8.7 L Total Protein Albumin 06/10/17 06:26 WBC RBC Hgb Hct MCV MCH MCHC RDW Plt Count Seg Neutrophils % Lymphocytes % Monocytes % Eosinophils % Basophils % Absolute Neutrophils Absolute Lymphocytes Absolute Monocytes Absolute Eosinophils Absolute Basophils VBG pH VBG pCO2 VBG HCO3 VBG Base Excess Sodium 140.5 Potassium 4.1 Chloride 105 Carbon Dioxide 24 Anion Gap 12 BUN 31 H Creatinine 1.44 H Est GFR ( Amer) 49 L Est GFR (Non-Af Amer) 41 L Glucose 106 Calcium 8.1 L Total Bilirubin 0.6 AST 74 H ALT 117 H Alkaline Phosphatase 85 Ammonia Total Protein 6.2 L Albumin 3.4 L 06/09/17 06/10/17 06/10/17 23:13 02:21 02:21 Creatine Kinase 2534 H 2153 H CK-MB (CK-2) 7.51 H 06/10/17 06/10/17 06:26 06:26 Creatine Kinase 1945 H CK-MB (CK-2) 6.23 H Impressions: Ankle X-Ray 06/09/17 15:16 IMPRESSION: Fracture of the distal fibula. Head CT 06/09/17 16:20 IMPRESSION: NORMAL BRAIN CT WITHOUT CONTRAST. EVIDENCE OF ACUTE STROKE: NO. Assessment & Plan - Diagnosis (1) Acute renal failure Qualifiers: Acute renal failure type: unspecified Qualified Code(s): N17.9 - Acute kidney failure, unspecified Is this a current diagnosis for this admission?: Yes (2) Closed fracture of left distal fibula Qualifiers: Encounter type: initial encounter Fracture morphology: other fracture Qualified Code(s): S82.832A - Other fracture of upper and lower end of left fibula, initial encounter for closed fracture Is this a current diagnosis for this admission?: Yes (3) Rhabdomyolysis Qualifiers: Rhabdomyolysis type: traumatic Encounter type: initial encounter Qualified Code(s): T79.6XXA - Traumatic ischemia of muscle, initial encounter Is this a current diagnosis for this admission?: Yes (4) Anemia Qualifiers: Anemia type: unspecified type Qualified Code(s): D64.9 - Anemia, unspecified Is this a current diagnosis for this admission?: Yes (5) Elevated LFTs Is this a current diagnosis for this admission?: Yes (6) Coagulopathy Is this a current diagnosis for this admission?: Yes (7) Depression Qualifiers: Depression Type: unspecified Qualified Code(s): F32.9 - Major depressive disorder, single episode, unspecified Is this a current diagnosis for this admission?: Yes (8) Opioid dependence Qualifiers: Substance use status: with unspecified opioid-induced disorder Qualified Code(s): F11.29 - Opioid dependence with unspecified opioid-induced disorder Is this a current diagnosis for this admission?: Yes (9) ADHD (attention deficit hyperactivity disorder) Qualifiers: Attention deficit-hyperactivity disorder type: unspecified Qualified Code(s ): F90.9 - Attention-deficit hyperactivity disorder, unspecified type Is this a current diagnosis for this admission?: Yes (10) Morbid obesity with BMI of 40.0-44.9, adult Is this a current diagnosis for this admission?: Yes (11) AMANDA (obstructive sleep apnea) Is this a current diagnosis for this admission?: Yes (12) Benzodiazepine dependence Is this a current diagnosis for this admission?: Yes (13) Essential hypertension Is this a current diagnosis for this admission?: Yes (14) GERD (gastroesophageal reflux disease) Qualifiers: Esophagitis presence: without esophagitis Qualified Code(s): K21.9 - Gastro -esophageal reflux disease without esophagitis Is this a current diagnosis for this admission?: Yes (15) Hyperlipidemia Qualifiers: Hyperlipidemia type: unspecified Qualified Code(s): E78.5 - Hyperlipidemia , unspecified Is this a current diagnosis for this admission?: Yes - Time Time Spent with patient: 25-34 minutes - Plan Summary Plan Summary: We will continue IV hydration and monitor electrolytes as well as CPK. In the meantime we will advance the patient's diet, resume her benzodiazepine at a lower dose as well as antidepressant at a lower dose. We will resume oxycodone as needed instead of scheduled. We will likewise decrease the dose. Awaiting evaluation by orthopedics and psychiatry service. Continue the sitter. Transfer to stepdown unit.
[2017-06-10] MEDS: ALPRAZOLAM 0.5 MG TABLET PO SCH ×2 (09:07→21:18)
[2017-06-10] MEDS: VENLAFAXINE HCL 75 MG CAP.SR.24H PO SCH (09:08)
[2017-06-10] MEDS: HEPARIN SOD (PORCINE) 5,000 UNIT/ML 1 ML SYRINGE SUBCUT SCH ×2 (09:09→21:18)
[2017-06-10] MEDS: ACETAMINOPHEN 325 MG TABLET PO PRN (09:14)
[2017-06-10] MEDS ORDERED: (PENDING PHARMACY ID) (Dextroamphetamine/Amphetamine [Adderall Xr 20 Mg Capsule] 20 MG) PO SCH (10:00)
--- NOTE | 2017-06-10 11:59 | PSYCHOLOGICAL NOTE ---
Psych Note - Psych Note Psych Note: Clinician conducted check-in with patient: Patient is mumbling and difficult to understand. Patient appears to be attempting to engage in conversation on multiple topics; however, then in the middle of mumbling stated "Hi, How are you." Clinician notes the patient was told clinician would be coming back and thanked for talk with with clinician. Patient stated "ok see you later, thank you." Patient is observed to continue conversation after clinician stepped out, patient started to laugh and continued talking with no one. It is noted the patient received Tylenol and Xanax prior to clinician's arrive. 311 (F32.9) unspecified depressive disorder 298.9 (F29) Unspecified psychosis impression/plan: Patient is recommenced to continue under IVC. Patient continues to be a danger to self. She is currently demonstrating difficulties communicating and responding to internal stimuli. Conversational speech was mumbled and difficult to understand. Patient kept her eyes closed during evaluation. Thought process is disorganized. Patient will be reevaluated. Dr. Daniels was consulted and the care management of this patient.
--- NOTE | 2017-06-10 20:16 | EKG REPORT ---
SEVERITY:- NORMAL ECG - SINUS RHYTHM : Confirmed by: Ingrid Meyers MD 10-Jun-2017 20:16:05
[2017-06-11] MEDS: OXYCODONE HCL IR 5 MG TABLET PO PRN ×3 (05:49→20:05)
[2017-06-11] MEDS: ACETAMINOPHEN 325 MG TABLET PO PRN (05:49)
[2017-06-11 06:34] LABS: HEMATOCRIT 24.8 % (36.0-47.0); HEMOGLOBIN 8.5 g/dL (12.0-15.5); HGB HCT DIFFERENCE 0.7; MEAN CORPUSCULAR HEMOGLOBIN 29.7 pg (27.0-33.4); MEAN CORPUSCULAR HGB CONC 34.3 g/dL (32.0-36.0); MEAN CORPUSCULAR VOLUME 87 fl (80-97); RED BLOOD COUNT 2.86 10^6/uL (3.72-5.28); RED CELL DISTRIBUTION WIDTH 14.6 % (11.5-14.0); WHITE BLOOD COUNT 9.9 10^3/uL (4.0-10.5)
[2017-06-11 06:44] LABS: ANION GAP 12 (5-19); BLOOD UREA NITROGEN 17 mg/dL (7-20); CALCIUM 8.5 mg/dL (8.4-10.2); CARBON DIOXIDE 24 mmol/L (22-30); CHLORIDE 107 mmol/L (98-107); CREATINE KINASE 823 U/L (30-135); CREATININE RESULT 0.88 mg/dL (0.52-1.25); GLUCOSE 112 mg/dL (75-110); POTASSIUM 4.6 mmol/L (3.6-5.0); SODIUM 142.5 mmol/L (137-145)
[2017-06-11] MEDS: VENLAFAXINE HCL 75 MG CAP.SR.24H PO SCH (09:55)
[2017-06-11] MEDS: ALPRAZOLAM 0.5 MG TABLET PO SCH ×2 (09:55→21:04)
[2017-06-11] MEDS: HEPARIN SOD (PORCINE) 5,000 UNIT/ML 1 ML SYRINGE SUBCUT SCH ×2 (09:55→21:04)
[2017-06-11] MEDS ORDERED: NICOTINE 21 MG/24 HR PATCH.TD24 TD ONE (11:30)
--- NOTE | 2017-06-11 12:10 | PDOC PROGRESS REPORT ---
Subjective Progress Note for:: 06/11/17 Subjective:: Patient reports feeling better this morning. No reported agitation nor aggressive behavior. However at times the patient can be restless. No temperature spikes, respiratory distress, nausea or vomiting, nor diarrhea. Physical Exam Vital Signs: Temp Pulse Resp BP Pulse Ox 98.4 F 92 17 148/80 H 99 06/11/17 07:45 06/11/17 08:42 06/11/17 07:45 06/11/17 07:45 06/11/17 07:45 Intake & Output 06/10/17 06/11/17 06/12/17 06:59 06:59 06:59 Intake Total 3571 5178 Output Total 1800 1600 Balance 1771 3578 Weight 129.7 kg 127.4 kg General appearance: PRESENT: no acute distress, cooperative, morbidly obese Head exam: PRESENT: normocephalic Eye exam: PRESENT: EOMI Mouth exam: PRESENT: moist, neck supple Neck exam: ABSENT: JVD Respiratory exam: PRESENT: clear to auscultation kathie. ABSENT: rhonchi, wheezes Cardiovascular exam: PRESENT: RRR. ABSENT: gallop GI/Abdominal exam: PRESENT: soft. ABSENT: distended, tenderness Extremities exam: ABSENT: pedal edema Neurological exam: PRESENT: alert, awake, oriented to person, oriented to place , oriented to time, oriented to situation Skin exam: PRESENT: dry, warm. ABSENT: cyanosis Results Laboratory Results: 06/11/17 06:12 06/11/17 06:12 06/11/17 06/11/17 06:12 06:12 WBC 9.9 RBC 2.86 L Hgb 8.5 L Hct 24.8 L MCV 87 MCH 29.7 MCHC 34.3 RDW 14.6 H Plt Count 297 Sodium 142.5 Potassium 4.6 Chloride 107 Carbon Dioxide 24 Anion Gap 12 BUN 17 Creatinine 0.88 Est GFR ( Amer) > 60 Est GFR (Non-Af Amer) > 60 Glucose 112 H Calcium 8.5 06/09/17 06/10/17 06/10/17 23:13 02:21 02:21 Creatine Kinase 2534 H 2153 H CK-MB (CK-2) 7.51 H 06/10/17 06/10/17 06/11/17 06:26 06:26 06:12 Creatine Kinase 1945 H 823 H CK-MB (CK-2) 6.23 H Impressions: Ankle X-Ray 06/09/17 15:16 IMPRESSION: Fracture of the distal fibula. Head CT 06/09/17 16:20 IMPRESSION: NORMAL BRAIN CT WITHOUT CONTRAST. EVIDENCE OF ACUTE STROKE: NO. Assessment & Plan - Diagnosis (1) Acute renal failure Qualifiers: Acute renal failure type: unspecified Qualified Code(s): N17.9 - Acute kidney failure, unspecified Is this a current diagnosis for this admission?: Yes (2) Closed fracture of left distal fibula Qualifiers: Encounter type: initial encounter Fracture morphology: other fracture Qualified Code(s): S82.832A - Other fracture of upper and lower end of left fibula, initial encounter for closed fracture Is this a current diagnosis for this admission?: Yes (3) Rhabdomyolysis Qualifiers: Rhabdomyolysis type: traumatic Encounter type: initial encounter Qualified Code(s): T79.6XXA - Traumatic ischemia of muscle, initial encounter Is this a current diagnosis for this admission?: Yes (4) Anemia Qualifiers: Anemia type: unspecified type Qualified Code(s): D64.9 - Anemia, unspecified Is this a current diagnosis for this admission?: Yes (5) Elevated LFTs Is this a current diagnosis for this admission?: Yes (6) Coagulopathy Is this a current diagnosis for this admission?: Yes (7) Depression Qualifiers: Depression Type: unspecified Qualified Code(s): F32.9 - Major depressive disorder, single episode, unspecified Is this a current diagnosis for this admission?: Yes (8) Opioid dependence Qualifiers: Substance use status: with unspecified opioid-induced disorder Qualified Code(s): F11.29 - Opioid dependence with unspecified opioid-induced disorder Is this a current diagnosis for this admission?: Yes (9) ADHD (attention deficit hyperactivity disorder) Qualifiers: Attention deficit-hyperactivity disorder type: unspecified Qualified Code(s ): F90.9 - Attention-deficit hyperactivity disorder, unspecified type Is this a current diagnosis for this admission?: Yes (10) Morbid obesity with BMI of 40.0-44.9, adult Is this a current diagnosis for this admission?: Yes (11) AMANDA (obstructive sleep apnea) Is this a current diagnosis for this admission?: Yes (12) Benzodiazepine dependence Is this a current diagnosis for this admission?: Yes (13) Essential hypertension Is this a current diagnosis for this admission?: Yes (14) GERD (gastroesophageal reflux disease) Qualifiers: Esophagitis presence: without esophagitis Qualified Code(s): K21.9 - Gastro -esophageal reflux disease without esophagitis Is this a current diagnosis for this admission?: Yes (15) Hyperlipidemia Qualifiers: Hyperlipidemia type: unspecified Qualified Code(s): E78.5 - Hyperlipidemia , unspecified Is this a current diagnosis for this admission?: Yes - Time Time Spent with patient: 25-34 minutes - Plan Summary Plan Summary: Appreciate psychiatry input. We will keep the patient on a sitter. In the meantime continue hydration and recheck CPK in the morning. Patient's creatinine is normal. Hemoglobin hematocrit is stable. We will continue to monitor. From the medical standpoint, patient seems to be stable at this point with no acute problem.
--- NOTE | 2017-06-11 13:07 | PDOC CONSULTATION ---
Consultation Consult Date: 06/10/17 Attending physician:: HU GANDHI Consult reason:: Left ankle fracture History of Present Illness Admission Date/PCP: 06/09/17 21:27 ALEX WALTER DO Patient complains of: Left ankle pain History of Present Illness: 37-year-old obese female admitted for psychiatric issues. Patient has seen me in the past a year ago for rotator cuff tear. Patient recognized me but does show a change in affect and mood and even in orientation to the situation. Patient showing some disproportionate feelings to the situation. Has minimal concern for her left ankle despite complaining of pain and inability to weight- bear. States he fell down some stairs. Denies any other extremity injury. Denies any numbness or tingling or paresthesias. Past Medical History Cardiac Medical History: Reports: Hyperlipidema, Hypertension Denies: Atrial Fibrillation, Congestive Heart Failure, Coronary Artery Disease, DVT, Myocardial Infarction, Pulmonary Embolism Pulmonary Medical History: Reports: Pneumonia - "Walking" yrs ago, Sleep Apnea Comment Only: Asthma - Chronic allergies Neurological Medical History: Denies: Hemorrhagic CVA, Ischemic CVA, Seizures Endocrine Medical History: Denies: Diabetes Mellitus Type 1, Diabetes Mellitus Type 2, Hyperthyroidism, Hypothyroidism GI Medical History: Reports: Gastroesophageal Reflux Disease Denies: Cirrhosis, Hepatitis, Peptic Ulcer Disease Musculoskeltal Medical History: Reports: Arthritis - Knees, elbows Psychiatric Medical History: Reports: Attention Deficit Hyperactivity Disorder, Depression Hematology: Denies: Anemia Infectious Medical History: Denies: Hepatitis B, Hepatitis C Past Surgical History Past Surgical History: Reports: Tubal Ligation, Other - Abdominal plasty with panniculectomy, [facility], 2013. Denies: Coronary Artery Bypass Graft Social History Lives with: Spouse/Significant other - Has lived with ex- for past 9 years Smoking Status: Current Every Day Smoker - Electronic cigarette Last Time Smoked: 2 years ago Frequency of Alcohol Use: None Hx Recreational Drug Use: No Drugs: None Hx Prescription Drug Abuse: Yes - Suspected - Advance Directive Resuscitation Status: Full Code Family History Family History: Reviewed & Not Pertinent Parental Family History Reviewed: No Children Family History Reviewed: No Sibling(s) Family History Reviewed.: No Medication/Allergy Home Medications: Alprazolam [Xanax] 2 mg PO Q12 06/09/17 Asenapine Maleate [Saphris] 10 mg SL QHS 06/09/17 Bupropion HCl [Bupropion Xl] 150 mg PO QAM 06/09/17 Cetirizine HCl [Zyrtec 10 mg Tablet] 10 mg PO DAILY 06/09/17 Cyclobenzaprine HCl [Flexeril 10 mg Tablet] 10 mg PO Q8HP PRN 06/09/17 Dextroamphetamine/Amphetamine [Adderall Xr 20 mg Capsule] 20 mg PO DAILY Furosemide [Lasix 20 mg Tablet] 20 mg PO DAILY 06/09/17 Montelukast Sodium [Singulair 10 mg Tablet] 10 mg PO QPM 06/09/17 Oxycodone HCl 15 mg PO Q6 06/09/17 Oxycodone HCl/Acetaminophen [Percocet 10-325 mg Tablet] 1 tab PO Q6HP PRN Prazosin HCl [Minipress] 5 mg PO QHS 06/09/17 Telmisartan/Hydrochlorothiazid [Telmisartan-Hctz 40-12.5 mg Tb] 1 tab PO DAILY 06/09/17 Venlafaxine HCl [Venlafaxine HCl ER] 150 mg PO BIDBS 06/09/17 Zolpidem Tartrate [Ambien] 10 mg PO HSP PRN 06/09/17 Allergies/Adverse Reactions: hydrocodone [Hydrocodone] Allergy (Severe, Verified 06/09/17 14:51) N&V, itching Review of Systems ROS unobtainable: Due to mental status Physical Exam Vital Signs: Temp Pulse Resp BP Pulse Ox 36.7 C 78 18 113/75 100 06/11/17 11:52 06/11/17 11:52 06/11/17 11:52 06/11/17 11:52 06/11/17 11:52 Intake & Output 06/10/17 06/11/17 06/12/17 06:59 06:59 06:59 Intake Total 3571 5178 0 Output Total 1800 1600 Balance 1771 3578 0 Weight 129.7 kg 127.4 kg General appearance: PRESENT: no acute distress, obese Head exam: PRESENT: atraumatic Eye exam: PRESENT: EOMI, other - Symmetric round pupils. ABSENT: nystagmus Neck exam: ABSENT: lymphadenopathy, tenderness, thyromegaly Respiratory exam: PRESENT: symmetrical, unlabored. ABSENT: accessory muscle use , tachypnea Pulses: PRESENT: +2 pedal pulses bilateral Vascular exam: PRESENT: normal capillary refill GI/Abdominal exam: PRESENT: soft. ABSENT: distended, guarding, organolmegaly, tenderness Neurological exam: PRESENT: awake, oriented to person, oriented to place. ABSENT: oriented to situation Psychiatric exam: PRESENT: agitated, anxious, unusual affect Skin exam: PRESENT: intact. ABSENT: abrasion, cyanosis, erythema Adult Front & Back Image: 1 - Splint was removed. Patient had tenderness over the lateral malleolus. Positive swelling and ecchymosis. Minimal range of motion second the pain. Good sensation to light touch dorsally laterally and plantarly. Good capillary refill with good dorsalis pedis pulse. No obvious deformity. Results Laboratory Results: 06/11/17 06:12 06/11/17 06:12 06/11/17 06/11/17 06:12 06:12 WBC 9.9 RBC 2.86 L Hgb 8.5 L Hct 24.8 L MCV 87 MCH 29.7 MCHC 34.3 RDW 14.6 H Plt Count 297 Sodium 142.5 Potassium 4.6 Chloride 107 Carbon Dioxide 24 Anion Gap 12 BUN 17 Creatinine 0.88 Est GFR ( Amer) > 60 Est GFR (Non-Af Amer) > 60 Glucose 112 H Calcium 8.5 06/09/17 06/10/17 06/10/17 23:13 02:21 02:21 Creatine Kinase 2534 H 2153 H CK-MB (CK-2) 7.51 H 06/10/17 06/10/17 06/11/17 06:26 06:26 06:12 Creatine Kinase 1945 H 823 H CK-MB (CK-2) 6.23 H Impressions: Ankle X-Ray 06/09/17 15:16 IMPRESSION: Fracture of the distal fibula. Head CT 06/09/17 16:20 IMPRESSION: NORMAL BRAIN CT WITHOUT CONTRAST. EVIDENCE OF ACUTE STROKE: NO. Status: Image reviewed by me Assessment & Plan - Diagnosis (1) Closed fracture of left distal fibula Qualifiers: Encounter type: initial encounter Fracture morphology: other fracture Qualified Code(s): S82.832A - Other fracture of upper and lower end of left fibula, initial encounter for closed fracture Is this a current diagnosis for this admission?: Yes Plan: Patient is a 37-year-old female with a minimally displaced left lateral malleolus ankle fracture. Patient instructed to continue wearing splint until follow-up visit. At that point she will placed in a cast. The meantime she continue nonweightbearing. I recommend physical therapy to help her ambulate with a walker. She does not need surgery. She can be treated nonoperatively. At this point I will defer her care in the hospital to the primary care team. I agree with the IV hydration and CPK monitoring. Patient can follow-up in the office once she has addressed her psychiatric issues.
[2017-06-11] MEDS: NORMAL SALINE 1000 ML 1,000 ML IV PRN (20:07)
[2017-06-12] MEDS ORDERED: OXYCODONE HCL IR 5 MG TABLET PO ONE (00:46)
[2017-06-12] MEDS ORDERED: TRAZODONE HCL 50 MG TABLET PO SCH (01:00)
[2017-06-12] MEDS: ACETAMINOPHEN 325 MG TABLET PO PRN ×2 (01:07→23:02)
[2017-06-12] MEDS: OXYCODONE HCL IR 5 MG TABLET PO PRN ×4 (03:05→23:01)
[2017-06-12] MEDS: VENLAFAXINE HCL 75 MG CAP.SR.24H PO SCH (09:19)
[2017-06-12] MEDS: NICOTINE 21 MG/24 HR PATCH.TD24 TD SCH (09:20)
[2017-06-12] MEDS: ALPRAZOLAM 0.5 MG TABLET PO SCH ×2 (09:20→23:00)
[2017-06-12] MEDS: HEPARIN SOD (PORCINE) 5,000 UNIT/ML 1 ML SYRINGE SUBCUT SCH ×2 (09:21→23:02)
--- NOTE | 2017-06-12 10:15 | PDOC PROGRESS REPORT ---
Subjective Progress Note for:: 06/12/17 Subjective:: Patient had pain on the leg last night requiring extra oxycodone dose otherwise denies any other discomfort. No reported agitation, aggressive behavior, nor confusion. Patient seems to be back to her baseline. Physical Exam Vital Signs: Temp Pulse Resp BP Pulse Ox 98.3 F 90 16 158/83 H 100 06/12/17 07:41 06/12/17 07:41 06/12/17 07:41 06/12/17 07:41 06/12/17 07:41 Intake & Output 06/11/17 06/12/17 06/13/17 06:59 06:59 06:59 Intake Total 5178 1687 Output Total 1600 Balance 3578 1687 Weight 127.4 kg 127.4 kg General appearance: PRESENT: no acute distress, morbidly obese Head exam: PRESENT: normocephalic Eye exam: PRESENT: EOMI Mouth exam: PRESENT: neck supple Neck exam: ABSENT: JVD Respiratory exam: PRESENT: clear to auscultation kathie Cardiovascular exam: PRESENT: RRR GI/Abdominal exam: ABSENT: distended - Obese Extremities exam: PRESENT: other - Trace pretibial edema, left ankle brace intact Skin exam: PRESENT: dry, warm. ABSENT: cyanosis Results Laboratory Results: 06/11/17 06:12 06/11/17 06:12 06/09/17 06/10/17 06/10/17 23:13 02:21 02:21 Creatine Kinase 2534 H 2153 H CK-MB (CK-2) 7.51 H 06/10/17 06/10/17 06/11/17 06:26 06:26 06:12 Creatine Kinase 1945 H 823 H CK-MB (CK-2) 6.23 H 06/12/17 05:25 Creatine Kinase 396 H CK-MB (CK-2) Impressions: Ankle X-Ray 06/09/17 15:16 IMPRESSION: Fracture of the distal fibula. Head CT 06/09/17 16:20 IMPRESSION: NORMAL BRAIN CT WITHOUT CONTRAST. EVIDENCE OF ACUTE STROKE: NO. Assessment & Plan - Diagnosis (1) Acute renal failure Qualifiers: Acute renal failure type: unspecified Qualified Code(s): N17.9 - Acute kidney failure, unspecified Is this a current diagnosis for this admission?: Yes (2) Closed fracture of left distal fibula Qualifiers: Encounter type: initial encounter Fracture morphology: other fracture Qualified Code(s): S82.832A - Other fracture of upper and lower end of left fibula, initial encounter for closed fracture Is this a current diagnosis for this admission?: Yes (3) Rhabdomyolysis Qualifiers: Rhabdomyolysis type: traumatic Encounter type: initial encounter Qualified Code(s): T79.6XXA - Traumatic ischemia of muscle, initial encounter Is this a current diagnosis for this admission?: Yes (4) Anemia Qualifiers: Anemia type: unspecified type Qualified Code(s): D64.9 - Anemia, unspecified Is this a current diagnosis for this admission?: Yes (5) Elevated LFTs Is this a current diagnosis for this admission?: Yes (6) Coagulopathy Is this a current diagnosis for this admission?: Yes (7) Depression Qualifiers: Depression Type: unspecified Qualified Code(s): F32.9 - Major depressive disorder, single episode, unspecified Is this a current diagnosis for this admission?: Yes (8) Opioid dependence Qualifiers: Substance use status: with unspecified opioid-induced disorder Qualified Code(s): F11.29 - Opioid dependence with unspecified opioid-induced disorder Is this a current diagnosis for this admission?: Yes (9) ADHD (attention deficit hyperactivity disorder) Qualifiers: Attention deficit-hyperactivity disorder type: unspecified Qualified Code(s ): F90.9 - Attention-deficit hyperactivity disorder, unspecified type Is this a current diagnosis for this admission?: Yes (10) Morbid obesity with BMI of 40.0-44.9, adult Is this a current diagnosis for this admission?: Yes (11) AMANDA (obstructive sleep apnea) Is this a current diagnosis for this admission?: Yes (12) Benzodiazepine dependence Is this a current diagnosis for this admission?: Yes (13) Essential hypertension Is this a current diagnosis for this admission?: Yes (14) GERD (gastroesophageal reflux disease) Qualifiers: Esophagitis presence: without esophagitis Qualified Code(s): K21.9 - Gastro -esophageal reflux disease without esophagitis Is this a current diagnosis for this admission?: Yes (15) Hyperlipidemia Qualifiers: Hyperlipidemia type: unspecified Qualified Code(s): E78.5 - Hyperlipidemia , unspecified Is this a current diagnosis for this admission?: Yes - Time Time Spent with patient: Less than 15 minutes - Plan Summary Plan Summary: Continue current medication and supportive care as well as PT. Awaiting psych facility.
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
[2017-06-12] MEDS ORDERED: TRAZODONE HCL 50 MG TABLET PO ONE (22:00)
[2017-06-13] MEDS: OXYCODONE HCL IR 5 MG TABLET PO PRN ×2 (05:30→12:59)
[2017-06-13] MEDS: ACETAMINOPHEN 325 MG TABLET PO PRN (06:45)
[2017-06-13] MEDS: ALPRAZOLAM 0.5 MG TABLET PO SCH (09:12)
[2017-06-13] MEDS: VENLAFAXINE HCL 75 MG CAP.SR.24H PO SCH (09:12)
[2017-06-13] MEDS: HEPARIN SOD (PORCINE) 5,000 UNIT/ML 1 ML SYRINGE SUBCUT SCH (09:13)
[2017-06-13] MEDS: NICOTINE 21 MG/24 HR PATCH.TD24 TD SCH (09:13)
--- NOTE | 2017-06-13 10:20 | PDOC DISCHARGE SUMMARY ---
General - Admit/Disc Date/PCP Admission Date/Primary Care Provider: 06/09/17 21:27 ALEX JOSE ANGEL, Discharge Date: 06/13/17 - Discharge Diagnosis (1) Acute renal failure Is this a current diagnosis for this admission?: Yes (2) Closed fracture of left distal fibula Is this a current diagnosis for this admission?: Yes (3) Rhabdomyolysis Is this a current diagnosis for this admission?: Yes (4) Anemia Is this a current diagnosis for this admission?: Yes (5) Elevated LFTs Is this a current diagnosis for this admission?: Yes (6) Coagulopathy Is this a current diagnosis for this admission?: Yes (7) Depression Is this a current diagnosis for this admission?: Yes (8) Opioid dependence Is this a current diagnosis for this admission?: Yes (9) ADHD (attention deficit hyperactivity disorder) Is this a current diagnosis for this admission?: Yes (10) Morbid obesity with BMI of 40.0-44.9, adult Is this a current diagnosis for this admission?: Yes (11) AMANDA (obstructive sleep apnea) Is this a current diagnosis for this admission?: Yes (12) Benzodiazepine dependence Is this a current diagnosis for this admission?: Yes (13) Essential hypertension Is this a current diagnosis for this admission?: Yes (14) GERD (gastroesophageal reflux disease) Is this a current diagnosis for this admission?: Yes (15) Hyperlipidemia Is this a current diagnosis for this admission?: Yes - Additional Information Resuscitation Status: Full Code Discharge Diet: Cardiac - Low-fat low-salt Discharge Activity: Activity As Tolerated, Balance Activity w/Rest Home Medications: Alprazolam [Xanax] 2 mg PO Q12 06/09/17 Asenapine Maleate [Saphris] 10 mg SL QHS 06/09/17 Cetirizine HCl [Zyrtec 10 mg Tablet] 10 mg PO DAILY 06/09/17 Cyclobenzaprine HCl [Flexeril 10 mg Tablet] 10 mg PO Q8HP PRN 06/09/17 Dextroamphetamine/Amphetamine [Adderall Xr 20 mg Capsule] 20 mg PO DAILY Montelukast Sodium [Singulair 10 mg Tablet] 10 mg PO QPM 06/09/17 Oxycodone HCl 15 mg PO Q6 06/09/17 Telmisartan/Hydrochlorothiazid [Telmisartan-Hctz 40-12.5 mg Tb] 1 tab PO DAILY 06/09/17 Venlafaxine HCl [Venlafaxine HCl ER] 150 mg PO BIDBS 06/09/17 Zolpidem Tartrate [Ambien] 10 mg PO HSP PRN 06/09/17 Additional Information: Return to the emergency room if pain worsens. Increase oral fluid intake. History of Present Illness History of Present Illness: EKTA CARROLL is a 37 year old morbidly obese female, with underlying ADHD, anxiety and depression, history of cutting herself, obstructive sleep apnea, hyperlipidemia, chronic bronchitis, hypertension, and mild occasional reflux who presents to the emergency room for evaluation of above complaint. Reported chronic opiate and benzodiazepine use. Patient has been discussed with emergency room physician who evaluated the patient. Fell off a stool last or Wednesday while at work. Was seen at the [facility] emergency room, and sent home with a take home Percocet pack and Flexeril 10 mg every 8 hours as needed, per ER physician report of paperwork from [facility]. Took pain medication and Flexeril earlier today and fell down a flight of 2 or 3 stairs at her home. No loss of consciousness. Complaining of left ankle pain , with x-rays revealing a distal left fibular fracture. Splint has been applied by emergency room physician. No nausea vomiting, diarrhea or dysuria, fever or chills, chest or abdominal pain. Emergency room physician felt patient was clearly altered in her mental status and thinking earlier, and felt she was a danger to herself and thus andrews up IVC papers. Has been seen by Dr. Daniels of psychiatry, who will also see her in follow-up. Patient states she took prescriptions that she has including Xanax, Percocet, Ambien, Wellbutrin, Flexeril, Motrin, and Naprosyn. States these are all her own prescriptions. When asked if she had taken the prescriptions in the correct amounts, she stated "as best as I can remember." Denied taking any other substances. Denies suicidal or homicidal ideation. Brief mild hypotension earlier. For details please refer to history and physical examination performed by the admitting physician. Hospital Course Hospital Course: The patient was admitted to [facility]. The patient was involuntarily committed in the ER. Patient however was not suicidal but has a lot of confusion and alteration in mental status due to medications. Psychiatry was consulted and the patient was placed on a sitter. Patient noted to have elevated creatinine as well as CPK. Patient was hydrated with normal saline and eventually creatinine normalized and CPK trended down. Orthopedics was consulted for the fracture of her fibula. He was placed in the splint with Chris wrap. Physical therapy was instituted. No surgical intervention was recommended but a follow- up was recommended. The patient improved and with psychiatry follow-up the patient's mental status significantly improved. Involuntary commitment was therefore reversed by psychiatry service. Patient was cleared to be discharged home. The rest of the hospital stays unremarkable. Patient was advised to follow-up with a neurologist on an outpatient basis. Physical Exam Vital Signs: Temp Pulse Resp BP Pulse Ox 98.2 F 65 16 139/71 H 96 06/13/17 07:31 06/13/17 07:31 06/13/17 07:31 06/13/17 07:31 06/13/17 07:31 Intake & Output 06/12/17 06/13/17 06/14/17 06:59 06:59 06:59 Intake Total 1687 807 Balance 1687 807 Weight 127.4 kg General appearance: PRESENT: no acute distress, cooperative, morbidly obese Head exam: PRESENT: normocephalic Eye exam: PRESENT: EOMI Mouth exam: PRESENT: moist, neck supple Neck exam: ABSENT: JVD Respiratory exam: PRESENT: clear to auscultation kathie. ABSENT: rhonchi, wheezes Cardiovascular exam: PRESENT: RRR. ABSENT: gallop GI/Abdominal exam: PRESENT: normal bowel sounds, soft. ABSENT: distended Extremities exam: PRESENT: other - Trace pretibial edema Neurological exam: PRESENT: alert, awake, oriented to person, oriented to place , oriented to time, oriented to situation Psychiatric exam: PRESENT: appropriate affect. ABSENT: homicidal ideation, suicidal ideation Focused psych exam: ABSENT: restlessness Skin exam: PRESENT: dry, warm. ABSENT: cyanosis Results Laboratory Results: 06/11/17 06:12 06/11/17 06:12 06/09/17 06/10/17 06/10/17 23:13 02:21 02:21 Creatine Kinase 2534 H 2153 H CK-MB (CK-2) 7.51 H 06/10/17 06/10/1717 06:26 06:26 06:12 Creatine Kinase 1945 H 823 H CK-MB (CK-2) 6.23 H 06/12/17 05:25 Creatine Kinase 396 H CK-MB (CK-2) Impressions: Ankle X-Ray 06/09/17 15:16 IMPRESSION: Fracture of the distal fibula. Head CT 06/09/17 16:20 IMPRESSION: NORMAL BRAIN CT WITHOUT CONTRAST. EVIDENCE OF ACUTE STROKE: NO. Qualifiers P[facility]INT BEING DISCHARGED WITH ANY OF THE FOLLOWING DIAGNOSIS?: No Plan Discharge Plan: Follow-up with primary care physician in 1 week. Follow-up with Dr. Mary Benton in 3-5 days. Follow-up with neurology in 1-2 weeks. Time Spent: Less than 30 Minutes
[2017-06-13 12:08] VITALS: BP 145/74
== END 2017-06-13 13:38 | disposition home health service (06) | DRG 948 ==
LOC: ER 14:31 → UNDOADMIN 20:19 → EH 20:19 → ICU 22:30 → 3S 06-10 17:34
PROVIDERS: ADMIT Family Medicine; ATTEND Family Medicine
PROC: 5A09457 Assistance with Respiratory Ventilation, 24-96 Consecutive Hours, Continuous Positive Airway Pressure (ICD-10-PCS; principal; 2017-06-09)
PROC: 2W3RX1Z Immobilization of Left Lower Leg using Splint (ICD-10-PCS; 2017-06-09)
DX: R41.82 Altered mental status, unspecified (principal); N17.9 Acute kidney failure, unspecified; Z68.41 Body mass index [BMI] 40.0-44.9, adult; F13.20 Sedative, hypnotic or anxiolytic dependence, uncomplicated; N18.4 Chronic kidney disease, stage 4 (severe); F33.1 Major depressive disorder, recurrent, moderate; T50.905A Adverse effect of unspecified drugs, medicaments and biological substances, initial encounter; S82.62XA Displaced fracture of lateral malleolus of left fibula, initial encounter for closed fracture; F32.9 Major depressive disorder, single episode, unspecified; F90.9 Attention-deficit hyperactivity disorder, unspecified type; E66.01 Morbid (severe) obesity due to excess calories; G47.33 Obstructive sleep apnea (adult) (pediatric); K21.9 Gastro-esophageal reflux disease without esophagitis; E78.5 Hyperlipidemia, unspecified; I95.9 Hypotension, unspecified; M19.021 Primary osteoarthritis, right elbow; M19.022 Primary osteoarthritis, left elbow; M17.0 Bilateral primary osteoarthritis of knee; F17.290 Nicotine dependence, other tobacco product, uncomplicated; I12.9 Hypertensive chronic kidney disease with stage 1 through stage 4 chronic kidney disease, or unspecified chronic kidney disease; F11.29 Opioid dependence with unspecified opioid-induced disorder; D63.1 Anemia in chronic kidney disease; T79.6XXA Traumatic ischemia of muscle, initial encounter; F29 Unspecified psychosis not due to a substance or known physiological condition; F41.1 Generalized anxiety disorder; W10.9XXA Fall (on) (from) unspecified stairs and steps, initial encounter; Y92.018 Other place in single-family (private) house as the place of occurrence of the external cause; Z79.899 Other long term (current) drug therapy; Z91.5 Personal history of self-harm; Z79.891 Long term (current) use of opiate analgesic; Z91.81 History of falling; Z88.6 Allergy status to analgesic agent; T42.4X5A Adverse effect of benzodiazepines, initial encounter; T39.1X5A Adverse effect of 4-Aminophenol derivatives, initial encounter; T42.6X5A Adverse effect of other antiepileptic and sedative-hypnotic drugs, initial encounter; T43.295A Adverse effect of other antidepressants, initial encounter; T48.1X5A Adverse effect of skeletal muscle relaxants [neuromuscular blocking agents], initial encounter; T39.315A Adverse effect of propionic acid derivatives, initial encounter
CPT/HCPCS: 36415; 70450; 80048; 80053; 80307; 81001; 81025; 82140; 82550; 82553; 82803; 82962; 83735; 84443; 85025; 85027; 85610; 85730; 93005; 93010; 94660; 96360; 99291; J1644; J3490; J7030